=== PATIENT | female | born 1960 | race Caucasian/White ===

== ENCOUNTER 2024-09-26 10:04 | Day surgery (SDC) | payer BC ==
--- NOTE | 2024-09-23 15:11 | ELECTROCARDIOGRAPH REPORT ---
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 JOSE ARMANDO Bush Measurements Intervals [place] Rate: 56 P: -14 VA: 176 QRS: 9 QRSD: 88 T: 39 QT: 462 QTc: 446 Interpretive Statements Sinus bradycardia Electronically Signed On 09-23-2024 16:46:[address] JOSE ARMANDO Bush Please click the below link to view image of tracing.
[2024-09-23 15:27] LABS: MEAN PLATELET VOLUME 6.8 FL (7.4-10.4); PRE OP HEMATOCRIT 40.4 % (35.0-45.0); PRE OP HEMOGLOBIN 13.9 g/dL (12.0-16.0); PRE OP PLATELET COUNT 404 X10'3 (140-440); PRE OP WHITE BLOOD COUNT 10.4 10'3 (4.8-10.8); RED CELL DISTRIBUTION WIDTH 13.5 % (11.5-14.5)
[2024-09-23 15:44] LABS: CREATININE 0.84 MG/DL (0.40-0.90); PRE OP ALT 31 U/L (30-65); PRE OP ANION GAP 7 (8-16); PRE OP AST 14 U/L (10-37); PRE OP BILIRUB, TOTAL 0.5 MG/DL (0.0-1.0); PRE OP GLUCOSE 96 MG/DL (70-104); PRE OP POTASSIUM 3.5 MMOL/L (3.4-5.1); PRE OP SODIUM 138 MMOL/L (135-145); TOTAL CARBON DIOXIDE 27.6 MMOL/L (24-32); eGFR 68 ML/MIN
[2024-09-26] VITALS (9 sets, daily range): BP systolic 134–165; BP diastolic 57–80; PULSE 55–64; RESP 12–18; TEMP 98.1; O2SAT 93–98
[~2024-09-26] VITALS: Ht 165.1 cm; Wt 77.1 kg
[~2024-09-26 10:04] MED LIST: ALBU8HFA INH; EST TOP; IBUP-2697 PO; PROG200C11 PO; TES TOP; ringers solution, lacted 1,000 ML IV SCH
[2024-09-26] MEDS ORDERED: ondansetron/PF 4mg/2ml inj IV PRN (12:20)
[2024-09-26] MEDS ORDERED: morphine 4 MG/ML inj SYRINge IV PRN (12:20)
[2024-09-26] MEDS ORDERED: acetaminophen 1,000mg/100ml IV 100 ML IV PRN (12:20)
[2024-09-26] MEDS ORDERED: hydrALAZINE 20mg/ml inj. IV PRN (12:20)
[2024-09-26] MEDS ORDERED: labetalol 20mg/4ml (5mg/ml) syringe IV PRN (12:20)
[2024-09-26] MEDS ORDERED: HYDROmorphone/PF 0.2 MG/ML SYRINGE IV PRN ×2 (12:20)
[2024-09-26] MEDS ORDERED: propofol inj 20 ML IV ONE (13:39)
[2024-09-26] MEDS ORDERED: fentaNYL/PF 50MCG/1 ML 2ML syringe ONE (13:39)
[2024-09-26] MEDS ORDERED: midazolam 1 mg/ML 2ml injection ONE (13:39)
[2024-09-26] MEDS ORDERED: rocuronium 10mg/ml inj IV ONE (13:39)
[2024-09-26] MEDS: ceFAZolin 2gm/dext,iso 50mL 50 ML IV ONE (13:50)
[2024-09-26] MEDS: BUPIVAcaine/PF 2.5mg/ml (0.25%) 10ml vial IJ ONE (14:14)
[2024-09-26] MEDS ORDERED: INDOCYANINE GREEN 25 MG/10 ML VIAL IV ONE (14:20)
[2024-09-26] MEDS ORDERED: dexamethasone sod phosphate 4mg/ml inj. ONE (14:36)
[2024-09-26] MEDS ORDERED: ondansetron/PF 4mg/2ml inj ONE (14:36)
[2024-09-26] MEDS: ringers solution, lacted 1,000 ML IV SCH (15:17)
[2024-09-26] MEDS ORDERED: oxyCODONE/APAP 5-325mg tablet PO PRN (15:20)
[2024-09-26] MEDS: INDOCYANINE GREEN 25 MG/10 ML VIAL IV ONE (15:24)
[2024-09-26] MEDS: ketorolac trometh 30MG/ML vial 30 MG/ML VIAL IV ONE (15:30)
--- NOTE | 2024-09-26 15:31 | OPERATIVE REPORT ---
Operative Report Providers to CC CC: EDMAR MARCANO MD ~ Date of Procedure: Sep 26, 2024 Pre-Operative Diagnosis: Symptomatic cholelithiasis Post-Operative Diagnosis SAME as PRE-Op Procedure Performed Robotic assisted laparoscopic cholecystectomy 2 cm umbilical hernia repair Surgeon: Edmar Marcano MD FACS [employer] None Anesthesiologist: Jero Desouza Type of Anesthesia: General Findings: Clear identification of the cystic duct and cystic artery with critical view of safety obtained Wound class II Complications None Prosthetics\Implants used: None Estimated Blood Loss: Minimal Specimen Removed: Gallbladder Description of Procedure: Patient was brought to the operating room and identified by the nursing staff and the attending physician. Patient was placed supine and general anesthesia was induced. A supraumbilical, midline incision was made, long enough to accommodate a 12 mm Diaz port. During dissection, a moderate-sized hernia sac containing herniated preperitoneal fat and small amount of omentum was encountered. Excess preperitoneal fat was excised at the level of the fascia and the small hernia sac was excised and discarded. Fascial edges were freshe anay, revealing a 2 cm fascial defect. This was used for Diaz port placement. Diaz technique was used to gain entry into the abdomen. Stay sutures were placed in the Diaz port anchored to the fascia. Abdomen was insufflated without incident. Laparoscope was inserted and the abdomen surveyed. Secondary, 8.5 mm robotic trochars were placed in the left upper quadrant and ri ght lateral abdomen. Robotic arm was docked to the patient. Robotic instruments were guided intra- abdominally under laparoscopic visualization. Gallbladder was readily identified. Fundus of the gallbladder was grasped and retracted over the dome of the liver. Infundibulum was retracted towards the right lower quadrant. Peritoneum overlying the triangle was incised with hook electrocautery. This allowed for circumferential dissection of the cystic duct and artery. Critical view of safety was obtained. Duct and artery were then clipped with hemo-lock clips and both structures divided. Gallbladder was retracted laterally and dissected out of the gallbladder fossa. Gallbladder was set aside and fluorescent cholangiogram of the gallbladder fossa was used to confirm no evidence of bile leak. Gallbladder was placed in a laparoscopic retrieval bag. Secondary trochars were removed and the abdomen allowed to deflate. Diaz port was removed with the specimen in its retrieval bag. Fascia at the umbilical port site was closed with a combination of 0 Ethibond and 0 Vicryl sutures, thus repairing the umbilical hernia defect. Skin was closed with 4-0 Monocryl sutures in a subcuticular fashion. About 40 cc of local anesthetic was used during the case. Sterile dressings were applied. Patient was awakened and taken to the postanesthesia care unit in stable condition. Counts repoted as correct: Yes EDMAR MARCANO MD Sep 26, 2024 15:31
== END 2024-09-26 16:06 | disposition home or self-care (01) ==
LOC: PAS 10:04
PROVIDERS: ATTEND Surgery
DX: K80.10 Calculus of gallbladder with chronic cholecystitis without obstruction (principal); K42.9 Umbilical hernia without obstruction or gangrene; I10 Essential (primary) hypertension; J45.909 Unspecified asthma, uncomplicated; Z79.890 Hormone replacement therapy; Z79.899 Other long term (current) drug therapy; Z96.659 Presence of unspecified artificial knee joint; Z98.890 Other specified postprocedural states; Z83.3 Family history of diabetes mellitus; Z82.49 Family history of ischemic heart disease and other diseases of the circulatory system; Z82.61 Family history of arthritis
CPT/HCPCS: 36415; 47563; 49591; 80053; 85025; 93005; J0690; J1100; J1885; J2003; J2250; J2405; J2704; J3010; J3490; J7030; J7120; S2900; Z7506; Z7508; Z7512; A4215; A4618; A7000